=== PATIENT | male | born 1950 | race Caucasian/White ===

== ENCOUNTER 2016-09-16 05:49 | Day surgery (SDC) | payer MEDICARE, OTHER ==
[2016-09-13 10:50] VITALS: BP 114/76
[~2016-09-16] VITALS: Ht 177.8 cm; Wt 86.0 kg
[~2016-09-16 05:49] MED LIST: ALPR2TAB5 PO; ATOR80TA75 PO; CYCL-259 PO; DOCU100T6 PO; LAMO150T PO; LEVO125T5 PO; LITH300T3 PO; OXYC-229 PO
[2016-09-16] MEDS ORDERED: LIDOCAINE 1%, 2ML ONE (06:43)
[2016-09-16] MEDS ORDERED: BUPIVACAINE/PF-EPI 0.5% 1:200K ONE (06:59)
[2016-09-16] MEDS ORDERED: THROMBIN 5,000 UNIT VIAL TP ONE (06:59)
[2016-09-16] MEDS ORDERED: BACITRACIN 50,000 UNIT ONE (06:59)
[2016-09-16] MEDS ORDERED: FENTANYL PF 250 MCG/5ML ONE (07:16)
[2016-09-16] MEDS ORDERED: LACTATED RINGERS 1,000 ML IV SCH (07:18)
[2016-09-16] MEDS ORDERED: PROPOFOL 10 MG/ML, 20ML ONE (07:28)
[2016-09-16] MEDS ORDERED: GLYCOPYRROLATE 0.2MG/1ML ONE (07:28)
[2016-09-16] MEDS ORDERED: CEFAZOLIN 1,000 MG ONE (07:28)
[2016-09-16] MEDS ORDERED: NEOSTIGMINE 1 MG/ML, 10ML ONE (07:28)
[2016-09-16] MEDS ORDERED: ROCURONIUM 10 MG/ML ONE (07:28)
[2016-09-16] MEDS ORDERED: DEXAMETHASONE 4 MG/ML, 1ML ONE (07:28)
[2016-09-16] MEDS ORDERED: ONDANSETRON 2MG/ML, 2ML ONE (07:28)
[2016-09-16] MEDS ORDERED: LIDOCAINE 1%, 2ML SQ PRN (07:30)
[2016-09-16] MEDS ORDERED: ALBUTEROL SULFATE 2.5 MG/3 ML NPPB PRN (08:30)
[2016-09-16] MEDS ORDERED: FENTANYL PF 100 MCG/2ML IV PRN (08:30)
[2016-09-16] MEDS ORDERED: MIDAZOLAM 1 MG/ML, 2ML IV PRN (08:30)
[2016-09-16] MEDS ORDERED: OXYcodone 5 MG/5 ML ORAL.SOL UDC PO PRN (08:30)
[2016-09-16] MEDS ORDERED: hydrALAzine 20 MG/ML, 1ML IV PRN (08:30)
[2016-09-16] MEDS ORDERED: PROMETHAZINE 25 MG/ML, 1ML IV PRN (08:30)
[2016-09-16] MEDS ORDERED: METOPROLOL 1 MG/ML, 5ML IV PRN (08:30)
[2016-09-16] MEDS ORDERED: ACETAMINOPHEN 325 MG TABLET PO PRN (08:30)
[2016-09-16] MEDS ORDERED: ACETAMINOPHEN 650 MG/20.3 ML UDC ONE (09:11)
[2016-09-16] MEDS ORDERED: ACETAMINOPHEN 325 MG/10.15 ML UDC ONE (09:11)
[2016-09-16] MEDS ORDERED: OXYcodone 5 MG/5 ML ORAL.SOL UDC ONE (09:11)
[2016-09-16] MEDS ORDERED: FENTANYL PF 100 MCG/2ML ONE (09:19)
[2016-09-16] MEDS ORDERED: HYDROmorphone 1 MG/ML, 1ML ONE (09:56)
[2016-09-16] MEDS: HYDROmorphone 1 MG/ML, 1ML IV PRN ×2 (09:57→10:10)
[2016-09-16] MEDS ORDERED: OXYcodone/APAP 10/325MG TABLET ONE (13:21)
[2016-09-16] MEDS ORDERED: OXYcodone/APAP 10/325MG TABLET PO ONE (13:30)
== END 2016-09-16 13:50 ==
LOC: OUT 05:49 → EDSEX 07:30 → OUT 13:50
PROVIDERS: ATTEND Neurological Surgery
DX: M54.16 Radiculopathy, lumbar region (principal); M48.06 Spinal stenosis, lumbar region; E78.00 Pure hypercholesterolemia, unspecified; F31.9 Bipolar disorder, unspecified; F41.9 Anxiety disorder, unspecified; Z86.39 Personal history of other endocrine, nutritional and metabolic disease; Z87.891 Personal history of nicotine dependence; Z72.89 Other problems related to lifestyle; Z98.890 Other specified postprocedural states
CPT/HCPCS: 63056; 63057; 72100; 93005; J0690; J1100; J1170; J2405; J2704; J2710; J3010; J3490; J7120